=== PATIENT | female | born 1970 | race Caucasian/White ===

== ENCOUNTER 2018-12-29 19:38 | Emergency (ER) | payer BC ==
[2018-12-29 19:43] VITALS: BP 115/70; PULSE 85; RESP 16; TEMP 98.2
[2018-12-29] MEDS ORDERED: PROPARACAINE 0.5% OPHTH DROPS 15 ML BTL RIGHT EYE STA (19:46)
[2018-12-29] MEDS ORDERED: ERYTHROMYCIN 5 MG/GM OPHTH OINT 3.5 GM TUBE RIGHT EYE STA (19:46)
--- NOTE | 2018-12-29 20:23 | ED ---
Eye Problem HPI - General Chief complaint: Eye Problems Stated complaint: R Eye Injury Time Seen by Provider: 12/29/18 19:44 Source: patient Mode of arrival: ambulatory Limitations: no limitations - History of Present Illness Initial comments: 48-year-old female presenting today for chief complaint of right eye pain. Patient states she was hit directly in the eye yesterday within laser gun. Patient states she is able to see out of the eye however is very sensitive to light and watering. Patient is concerned of damage to the eye and presents for evaluation. Patient denies contact lens use. Patient has fever chills night sweats surrounding swelling of the eye or bruising. Patient denies headache nausea vomiting or dizziness. Patient states is not significant head trauma, the plastic gun just hit her in the eye. Upon arrival patient appears well. No signs of acute distress, closing the right eye. - Related Data Home Medications Medication Instructions Recorded Confirmed Pepto-Bismol Tablets 2 tab PO DAILY PRN 07/09/16 07/09/16 Previous Rx's Medication Instructions Recorded Erythromycin Ophth Oint [Romycin 1 applic LEFT EYE QID 3 Days #1 12/29/18 Ophth Oint] tube Allergies Allergy/AdvReac Type Severity Reaction Status Date / Time Iodinated Contrast- Oral and Allergy Dyspnea Verified 12/29/18 19:43 IV Dye [Iodinated Contrast Media - IV Dye] meperidine [From Demerol] AdvReac Nausea & Verified 12/29/18 19:43 Vomiting Review of Systems ROS Statement: Those systems with pertinent positive or pertinent negative responses have been documented in the HPI. ROS Other: All systems not noted in ROS Statement are negative. Past Medical History Additional Past Medical History / Comment(s): IBS History of Any Multi-Drug Resistant Organisms: None Reported Past Surgical History: Tonsillectomy Additional Past Surgical History / Comment(s): lymph node removal, d&c Past Psychological History: No Psychological Hx Reported Smoking Status: Current every day smoker Past Alcohol Use History: Occasional Past Drug Use History: None Reported General Exam - General Exam Comments Initial Comments: General: The patient is awake and alert, in no distress, and does not appear acutely ill. Eye: +3 mm pupils are equal, round and reactive to light, extra-ocular movements are intact. No nystagmus. There is normal left conjunctiva. No signs of icterus. Upon fluorescein examination there is a small corneal abrasion at the 2 o'clock position. There is no ulceration. No Art sign. Very mild conjunctival injection of the right eye that is sparing the limbus. Patient has significant photophobia, there is no indirect photophobia or APD. Ears, nose, mouth and throat: There are moist mucous membranes and no oral lesions. Neck: The neck is supple, there is no tenderness or JVD. Cardiovascular: There is a regular rate and rhythm. No murmur, rub or gallop is appreciated. Respiratory: Lungs are clear to auscultation, respirations are non-labored, breath sounds are equal. No wheezes, stridor, rales, or rhonchi. Gastrointestinal: Soft, non-distended, non-tender abdomen without masses or organomegaly noted. There is no rebound or guarding present. No CVA tenderness. Bowel sounds are unremarkable. Musculoskeletal: Normal ROM, no tenderness. Strength 5/5. Sensation intact. Pulses equal bilaterally 2+. Neurological: A&O x 3. CN II-XII intact, There are no obvious motor or sensory deficits. Coordination appears grossly intact. Speech is normal. Skin: Skin is warm and dry and no rashes or lesions are noted. Psychiatric: Cooperative, appropriate mood & affect, normal judgment. Limitations: no limitations Course Vital Signs 12/29/18 19:40 Temperature 98.2 F Pulse Rate 85 Respiratory 16 Rate Blood Pressure 115/70 O2 Sat by Pulse 98 Oximetry Medical Decision Making - Medical Decision Making 48-year-old female presenting for right eye pain after being hit in the eye with a plastic laser tag done yesterday. Upon examination there is corneal abrasion. No ulceration. Patient is not a contact lens wearer. Patient had pain relief with proparacaine. Patient be started on erythromycin. Patient is to follow-up with ophthalmology in 24-48 hours. Patient is agreeable with care plan and discharged today. She is aware of the importance of follow-up with ophthalmology. Patient instructed to take ibuprofen, for pain and use lubricating eyedrops for relief. Patient was discharged appear well after discussing the case attending provider Dr. Augustin Disposition Clinical Impression: Corneal abrasion, right Disposition: HOME SELF-CARE Condition: Good Instructions (If sedation given, give patient instructions): Corneal Abrasion (ED) Additional Instructions: Please use medication as discussed. Please follow-up with ophthalmology in the next 24-48 hours, as discussed. Please return to emergency room if the symptoms increase or worsen or for any other concerns. Prescriptions: Erythromycin Ophth Oint [Romycin Ophth Oint] 1 applic LEFT EYE QID 3 Days #1 tube Is patient prescribed a controlled substance at d/c from ED?: No Referrals: Malachi Kinney MD [Primary Care Provider] - 1-2 days Andrea Paris MD [STAFF PHYSICIAN] - 1-2 days Time of Disposition: 20:17
== END 2018-12-29 20:37 | disposition home or self-care (01) ==
LOC: EC 19:38
DX: S05.01XA Injury of conjunctiva and corneal abrasion without foreign body, right eye, initial encounter (principal); F17.200 Nicotine dependence, unspecified, uncomplicated; Z88.5 Allergy status to narcotic agent; Z91.041 Radiographic dye allergy status; W22.8XXA Striking against or struck by other objects, initial encounter
CPT/HCPCS: 99283